=== PATIENT | female | born 1955 | race Hispanic/Latino ===

== ENCOUNTER → 2023-06-18 | Outpatient (CLI) | payer MEDICARE ==
[~2023-06-18] MED LIST: IOHEXOL 350 MG/ML 100ML INFUS..BTL IV ONE; METOPROLOL TARTRATE 1 MG/ML 5ML VIAL IV ONE
== END | disposition home or self-care (01) ==
LOC: RAH 10:45
PROVIDERS: ATTEND Internal Medicine Cardiovascular Disease
DX: I20.9 Angina pectoris, unspecified (principal)
CPT/HCPCS: 75574; J3490; Q9967

== ENCOUNTER → 2023-10-07 | Outpatient (CLI) | payer MEDICARE | END | disposition home or self-care (01) | LOC: RAH 13:28 | PROVIDERS: ATTEND Student in an Organized Health Care Education/Training Program | DX: S83.242A Other tear of medial meniscus, current injury, left knee, initial encounter (principal); M25.462 Effusion, left knee; M23.92 Unspecified internal derangement of left knee; X58.XXXA Exposure to other specified factors, initial encounter; Y93.89 Activity, other specified; Y92.89 Other specified places as the place of occurrence of the external cause; Y99.8 Other external cause status | CPT/HCPCS: 73721 ==

== ENCOUNTER 2023-12-06 09:09 | Day surgery (SDC) | payer MEDICARE ==
[2023-12-04 15:00] VITALS: BP 140/65; PULSE 85; RESP 16; TEMP 97.4
[2023-12-04 15:14] LABS: BASOPHILS # (AUTO) 0.04 K/uL (0.00-0.20); BASOPHILS % (AUTO) 0.5 % (0.0-5.0); EOSINOPHILS # (AUTO) 0.08 K/uL (0.00-0.70); HEMATOCRIT 43.4 % (36-48); IMMATURE GRANULOCYTE ABSOLUTE 0.01 K/uL (0-1); LYMPHOCYTES # (AUTO) 2.4 K/uL (1.0-4.8); LYMPHOCYTES % (AUTO) 29.5 % (21.0-51.0); MEAN CORPUSCULAR HEMOGLOBIN 30.7 pg (27.0-33.0); MEAN CORPUSCULAR HGB CONC 33.4 g/dL (32.0-36.0); MEAN CORPUSCULAR VOLUME 91.8 fL (79-99); MONOCYTES % (AUTO) 11.5 % (3.0-13.0); NEUTROPHILS # (AUTO) 4.8 K/uL (1.8-7.7); NEUTROPHILS % (AUTO) 57.4 % (40.0-77.0); PLATELET COUNT (AUTO) 219 K/uL (130-400); RED BLOOD CELL COUNT(AUTO) 4.73 MIL/uL (4.00-5.50); RED CELL DISTRIBUTION WIDTH 11.8 % (11.0-15.5); WHITE BLOOD COUNT (AUTO) 8.3 K/uL (4.8-10.8)
[2023-12-04 15:24] LABS: CARBON DIOXIDE 32 mmol/L (21-32); CHLORIDE 104 mmol/L (101-111); GLOMERULAR FILTR. RATE CALC 62 mL/min (>90); GLUCOSE,RANDOM 116 mg/dL (70-105); INR 1.01 (0.85-1.15); POTASSIUM 4.5 mmol/L (3.5-5.1); PROTHROMBIN TIME 10.9 SEC (9.6-11.6); SODIUM SERUM 143 mmol/L (136-145); UREA NITROGEN, BLOOD 16 mg/dL (7-18)
[2023-12-04 15:25] LABS: PARTIAL THROMBOPLASTIN TIME 24.2 SEC (26.3-35.5)
[~2023-12-06] VITALS: Ht 165.1 cm; Wt 86.6 kg
[2023-12-06] VITALS (14 sets, daily range): BP systolic 126–149; BP diastolic 60–78; PULSE 60–78; RESP 12–18; TEMP 97.3–97.9
[2023-12-06] MEDS: ceFAZolin SODIUM 2 GM VIAL ONE (07:52)
[~2023-12-06 09:09] MED LIST changes: +ACET-66 PO; +CHOL2000 PO; +CYAN-106 PO; +ESOM20CA51 PO; +EZET10TA48 PO; -IOHEXOL 350 MG/ML 100ML INFUS..BTL IV ONE; +LOPE2CAP PO; +LOSA50TA64 PO; +MELO-106 PO; +METO-391 PO; -METOPROLOL TARTRATE 1 MG/ML 5ML VIAL IV ONE; +MILK500C PO; +MULT-1367 PO; +TURMERIC PO
[2023-12-06] MEDS ORDERED: acetaMINOPHEN 1,000 MG/100 ML VIAL IV ONE (09:18)
[2023-12-06] MEDS ORDERED: FAMOTIDINE 20MG VIAL IV ONE (09:18)
[2023-12-06] MEDS ORDERED: ketaMINE 50MG/ML SYRINGE 50 MG/ML DISP.SYRIN ONE (09:19)
[2023-12-06] MEDS ORDERED: LIDOCAINE PF 100MG/5ML (2%) SYRINGE 5ML ONE (09:35)
[2023-12-06] MEDS ORDERED: FENTanyl CITRate PF 50 MCG/1 ML 2ML VIAL ONE (09:36)
[2023-12-06] MEDS ORDERED: rocuRONium bROMide 10MG/1ML 5ML VL ONE (09:36)
[2023-12-06] MEDS ORDERED: proPOFol 10 MG/ML 20ML VIAL IV ONE (09:36)
[2023-12-06] MEDS: LACTATED RINGERS 1000ML 1,000 ML IV ONE (09:55)
[2023-12-06] MEDS ORDERED: ondanSETRON 4MG INJ ONE (10:09)
[2023-12-06] MEDS ORDERED: dexaMETHasone SOD PHOSPHATE 10MG/ML 1ML VIAL ONE (10:09)
[2023-12-06] MEDS ORDERED: ACET-2079 PO (10:16)
[2023-12-06] MEDS: BUPIvacaine/PF 0.25% 30ML VIAL IJ ONE (10:54)
[2023-12-06] MEDS ORDERED: NEOSTIGMINE METHYLSULFATE 1MG/ML IV ONE (11:17)
[2023-12-06] MEDS ORDERED: GLYCOPYRROLATE 0.2 MG/ML 5 ML VIAL ONE (11:17)
[2023-12-06] MEDS: MEPERIDINE-PF 25 MG/ML SYG ONE (11:54)
== END 2023-12-06 13:30 | disposition home or self-care (01) ==
LOC: DAH 09:09
PROVIDERS: ATTEND Student in an Organized Health Care Education/Training Program
DX: M23.222 Derangement of posterior horn of medial meniscus due to old tear or injury, left knee (principal); M22.42 Chondromalacia patellae, left knee; M17.12 Unilateral primary osteoarthritis, left knee; M65.862 Other synovitis and tenosynovitis, left lower leg; M25.562 Pain in left knee; Z79.01 Long term (current) use of anticoagulants; I10 Essential (primary) hypertension; I48.91 Unspecified atrial fibrillation; I25.10 Atherosclerotic heart disease of native coronary artery without angina pectoris; K58.9 Irritable bowel syndrome, unspecified; Z88.8 Allergy status to other drugs, medicaments and biological substances; Z90.710 Acquired absence of both cervix and uterus; Z79.899 Other long term (current) drug therapy; E78.2 Mixed hyperlipidemia; Z90.721 Acquired absence of ovaries, unilateral; Z98.890 Other specified postprocedural states
CPT/HCPCS: 80048; 85025; 85610; 85730; 86140; 36415; 93005; 29881; A4663; A4649 ×2; J7120; J3490 ×4; J3010; J1100; J0665; J2001; J2704; J2405; J2710; J2175; J0690; A6223; A4930; A5120; A4215; A4223; A4222; A4221; A6450